=== PATIENT | female | born 1985 | race Two or more races ===

== ENCOUNTER 2018-04-25 20:22 | Inpatient (IN) | payer OTHER ==
[2018-04-25] MEDS: LACTATED RINGER'S 1000 ML IV (21:18)
[2018-04-25] MEDS: LR 1,000 ML IV (21:18)
[2018-04-25] MEDS: PENICILLIN G POTASSIUM IV 5 MU in D5W MINI-BAG PLUS 100 ML IV (21:18)
[2018-04-25 21:38] LABS: HEMATOCRIT 40.4 % (36.0-47.0); MEAN CORPUSCULAR HGB CONC 32.2 g/dl (32.0-36.5); MEAN CORPUSCULAR VOLUME 77.7 fl (80.0-96.0); PLATELET COUNT, AUTOMATED 299 10^3/uL (150-450); RED CELL DISTRIBUTION WIDTH 15.3 % (11.5-14.5); WHITE BLOOD COUNT 13.1 10^3/uL (4.0-10.0)
[2018-04-25] MEDS ORDERED: FENTANYL 2MCG/ML ROPIVACAINE 0.2% IN 0.9% NACL 200ML IVBAG As Ordered (23:32)
[2018-04-26] MEDS ORDERED: LACTATED RINGER'S 1000 ML IV (01:00)
[2018-04-26] MEDS ORDERED: ePHEDrine SULFATE 25 MG/5 ML(5MG/ML) SYRINGE IV (01:00)
[2018-04-26] MEDS ORDERED: EPIDURAL/PCA KEYS XX (01:00)
[2018-04-26] MEDS ORDERED: REFRIGERATOR IV KEYS XX (01:00)
[2018-04-26] MEDS ORDERED: diphenhydrAMINE INJ 50MG/ML VIAL (J1200) IV (01:00)
[2018-04-26] MEDS ORDERED: FENTANYL/ROPIVACAINE/NACL BAG 200 ML EPIDURAL (01:00)
[2018-04-26] MEDS ORDERED: EPIDURAL COMMENT XX (01:00)
[2018-04-26] MEDS ORDERED: NALOXONE INJ 0.4 MG/1 ML VIAL (J2310) IV (01:00)
[2018-04-26] MEDS ORDERED: ONDANSETRON 4MG/2ML VIAL (J2405) IV ×2 (01:00→11:00)
[2018-04-26] MEDS: PENICILLIN G POTASSIUM IV 2.5 MU in APPROPRIATE DILUENT 1 EA IV ×3 (01:53→09:46)
[2018-04-26] MEDS: CALCIUM CARBONATE 500 MG CHEW U/D PO (02:53)
[2018-04-26] MEDS ORDERED: OXYTOCIN 30 UNITS IN 0.9% NaCl 500ML IV BAG (J2590) As Ordered (04:19)
[2018-04-26] MEDS ORDERED: OXYTOCIN DRIP 30 UNITS in APPROPRIATE DILUENT 1 EA IV (06:30)
[2018-04-26] MEDS: FAMOTIDINE INJ 20MG/2ML VIAL (S0028) IVP (06:43)
[2018-04-26] MEDS: LR 1,000 ML IV (07:24)
[2018-04-26] MEDS: ACETAMINOPHEN 500 MG TAB PO (08:50)
[2018-04-26] MEDS: PRENATAL VITAMINS CHEWABLE TABLET PO (09:00)
[2018-04-26] MEDS: OXYTOCIN DRIP 30 UNITS in APPROPRIATE DILUENT 1 EA IV (10:53)
[2018-04-26] MEDS ORDERED: DIBUCAINE 1% OINTMENT 30GM TOP (11:00)
[2018-04-26] MEDS ORDERED: ACETAMINOPHEN TAB 650MG DOSE (2X325MG) PO (11:00)
[2018-04-26] MEDS ORDERED: MEASLES,MUMPS,RUBELLA VACCINE INJ (MMR-II) (90707) SC (11:00)
[2018-04-26] MEDS ORDERED: METHYLERGONOVINE MALEATE 0.2 MG TAB PO (11:00)
[2018-04-26] MEDS: IBUPROFEN 600 MG TAB PO (13:08)
[2018-04-27] MEDS: IBUPROFEN 600 MG TAB PO ×2 (00:58→05:59)
[2018-04-27] MEDS: DOCUSATE SODIUM 100 MG CAP PO (09:04)
[2018-04-27] MEDS: PRENATAL VITAMINS CHEWABLE TABLET PO (09:04)
[2018-04-28] MEDS: PRENATAL VITAMINS CHEWABLE TABLET PO (09:01)
[2018-04-28] MEDS: IBUPROFEN 600 MG TAB PO (10:29)
== END 2018-04-28 14:45 | disposition home or self-care (01) | DRG 775 ==
LOC: M LDO 20:22 → M LDI 21:11 → M OBS 04-26 12:29
PROVIDERS: Obstetrics & Gynecology
PROC: 10E0XZZ Delivery of Products of Conception, External Approach (ICD-10-PCS; principal; 2018-04-26)
PROC: 0KQM0ZZ Repair Perineum Muscle, Open Approach (ICD-10-PCS; 2018-04-26)
DX: O99.824 Streptococcus B carrier state complicating childbirth (principal); Z3A.39 39 weeks gestation of pregnancy; O70.1 Second degree perineal laceration during delivery; Z37.0 Single live birth